=== PATIENT | female | born 1985 | race American Indian/Alaskan Native ===

== ENCOUNTER 2021-07-01 16:01 | Emergency (ER) | payer SELFPAY ==
[2021-07-01] MEDS ORDERED: SODIUM CHLORIDE 0.9% 1000 ML 1,000 ML IV ONE (17:08)
--- NOTE | 2021-07-01 17:13 | Emergency Department Report ---
ED General Adult HPI - General Chief complaint: Back Pain/Injury Stated complaint: BACK PAIN Time Seen by Provider: 07/01/21 17:02 Source: patient Mode of arrival: Ambulatory Limitations: No Limitations - History of Present Illness Initial comments: 35-year-old female patient with history of endometriosis presents to the emergency department with complaints of right-sided back pain and right upper quadrant abdominal pain starting today. Patient also endorses multiple episodes of nausea and vomiting. No preceding fall, trauma, or injury. No known sick contacts. Prior surgical history includes operation for endometriosis. Last menstrual cycle early June. No medications prior to arrival. Denies fever, diarrhea, constipation, vaginal bleeding, vaginal discharge, hematuria. Denies all other complaints at this time. - Related Data Previous Rx's Medication Instructions Recorded Last Taken Type Dicyclomine [Bentyl] 20 mg PO QID #20 tablet 07/01/21 Unknown Rx Ondansetron [Zofran Odt] 4 mg PO Q6H #20 tab.rapdis 07/01/21 Unknown Rx Allergies Allergy/AdvReac Type Severity Reaction Status Date / Time No Known Allergies Allergy Verified 07/01/21 16:10 ED Review of Systems ROS: Stated complaint: BACK PAIN Other details as noted in HPI Other: GENERAL: Negative for fever, chills, weight change, anorexia, fatigue. ENT: Negative for ear pain, difficulty hearing, sore throat, nasal congestion, epistaxis. CARDIOVASCULAR: Negative for chest pain, palpitations, lower extremity swelling. PULMONARY: Negative for cough, dyspnea, wheezing, orthopnea, cyanosis. GASTROINTESTINAL: Positive for abdominal pain, nausea, vomiting. MUSCULOSKELETAL: Positive for back pain. NEUROLOGICAL: Negative for headache, seizure, syncope, paresthesias, weakness. INTEGUMENTARY: Negative for erythema, rash, diaphoresis, laceration, ecchymosis. HEMATOLOGICAL: Negative for hemoptysis, hematemesis, hematochezia, hematuria. PSYCHIATRIC: Negative for hallucinations, suicidal ideation, homicidal ideation, anxiety, depression. ED Past Medical Hx - Medications Home Medications: Home Medications Medication Instructions Recorded Confirmed Last Taken Type Dicyclomine [Bentyl] 20 mg PO QID #20 tablet 07/01/21 Unknown Rx Ondansetron [Zofran Odt] 4 mg PO Q6H #20 tab.rapdis 07/01/21 Unknown Rx ED Physical Exam - General Limitations: No Limitations - Other Other exam information: General: Awake and alert. Tearful, uncomfortable, struggling to sit still. Head: Atraumatic, normocephalic. Eyes: EOMI. Pupils are equal and round. Normal sclera and conjunctiva. ENT: Oral mucosa is moist. Normal pharyngeal exam. Neck: Supple. No lymphadenopathy. Pulmonary: No respiratory distress. Clear to auscultation bilaterally. Cardiac: Regular rate and rhythm. Pulses are palpable and equal bilaterally. No lower extremity cyanosis or edema. Skin: Warm and dry. No rashes. Abdomen: Soft, non-protuberant. Right upper quadrant tenderness without guarding, rigidity, or rebound. Bowel sounds are normal. No organomegaly or masses noted. Back: Normal alignment. Right CVA tenderness. Extremities: Symmetrical. Full range of motion intact. Neurological: Alert and oriented, appropriately interactive, no focal deficits. Psych: Cooperative. Appropriate mood and affect. Speech is evenly metered. Thoughts are logically construed. ED Course Vital Signs 07/01/21 16:09 Temperature 98.5 F Pulse Rate 83 Respiratory 18 Rate Blood Pressure 103/57 [Left] O2 Sat by Pulse 100 Oximetry ED Medical Decision Making - Lab Data Result diagrams: 07/01/21 17:55 07/01/21 17:55 - Medical Decision Making Differential diagnosis including but not limited to: hepatobiliary disease, pancreatitis, pyelonephritis, nephrolithiasis, ectopic , urinary tract infection, dehydration, electrolyte abnormality On reevaluation, patient remains stable. No further vomiting in the emergency department. Labs are unremarkable. test is negative. Ultrasound obtained due to right upper quadrant tenderness within normal limits. CT of the abdomen/pelvis obtained due to right flank pain/CVA tenderness without acute process. Etiology of patient's pain is unclear; high clinical suspicion for viral illness. No clinical indication for further diagnostic work-up on an emergent basis at this time. Patient we discharged home with appropriate symptomatic treatment and referred to primary care provider for close outpatient follow-up. Patient expressed understanding and is agreeable to plan of care. Disease transmission precautions discussed. Strict return precautions provided. Repeat exam is unremarkable and benign. History, exam, diagnostic testing, and current condition do not suggest worrisome pathology to warrant further testing, continued ED treatment, admission, or surgical evaluation at this point. Given the low probability of a significant medical illness, it would be more likely to result in harm than benefit to perform further testing at this stage. Discussed findings, presumptive diagnosis, need for follow-up and specific signs/symptoms that should prompt immediate return to the emergency department. Instructions were explained in detail to the patient in addition to giving written discharge information. Patient expressed understanding and was given the opportunity to ask questions, all of which were satisfactorily answered prior to discharge home. Critical care attestation.: If time is entered above; I have spent that time in minutes in the direct care of this critically ill patient, excluding procedure time. ED Disposition Clinical Impression: Nonspecific abdominal pain Disposition: HOME / SELF CARE / HOMELESS Is pt being admited?: No Does the pt Need Aspirin: No Condition: Stable Instructions: Abdominal Pain, Adult, [place] Additional Instructions: Take Bentyl as directed for intestinal discomfort. Take Zofran as directed for nausea/vomiting. Rest. Drink plenty of fluids. Wash hands frequently to prevent disease transmission. Do not share food or drinks with others. Follow-up with primary care provider this week. Call tomorrow to schedule an appointment. See referral information below. Return to the emergency department immediately for new or worsening symptoms. Prescriptions: Dicyclomine [Bentyl] 20 mg PO QID #20 tablet Ondansetron [Zofran Odt] 4 mg PO Q6H #20 tab.rapdis Referrals: BREE BENITO MD [Staff Physician] - 3-5 Days [facility] [Provider Group] - 3-5 Days Time of Disposition: 22:50
[2021-07-01] MEDS ORDERED: ONDANSETRON 4 MG/2 ML INJ IV ONE (18:24)
[2021-07-01] MEDS ORDERED: MORPHINE 4 MG/1 ML INJ IV ONE (18:24)
[2021-07-01 18:37] LABS: Basophils # (Auto) 0.1 K/mm3 (0.0-0.1); Basophils % (Auto) 0.8 % (0.0-1.8); Eosinophils % (Auto) 0.1 % (0.0-4.3); Hematocrit 41.9 % (30.3-42.9); Lymphocytes # (Auto) 1.2 K/mm3 (1.2-5.4); Lymphocytes % (Auto) 12.9 % (13.4-35.0); Mean Corpuscular HGB Conc 33 % (30-34); Mean Corpuscular Volume 96 fl (79-97); Monocytes # (Auto) 0.4 K/mm3 (0.0-0.8); Monocytes % (Auto) 4.7 % (0.0-7.3); Platelet Count 240 K/mm3 (140-440); Red Blood Count 4.37 M/mm3 (3.65-5.03); Red Cell Distribution Width 14.2 % (13.2-15.2)
[2021-07-01 19:00] LABS: Alanine Aminotransferase 14 units/L (7-56); Albumin 4.7 g/dL (3.9-5)
[2021-07-01 19:21] LABS: Blood Urea Nitrogen 7 mg/dL (7-17); Calcium 9.4 mg/dL (8.4-10.2); Hemolysis Index 9
[2021-07-01 19:28] LABS: BUN/Creatinine Ratio 12
--- NOTE | 2021-07-01 20:04 | Ultrasound Report ---
ULTRASOUND ABDOMEN, LIMITED (RIGHT UPPER QUADRANT) INDICATION: RUQ tenderness + vomiting. COMPARISON: None available. FINDINGS: Pancreas: Visualized portion shows no significant abnormality. Liver: Normal. Gallbladder: Normal. Bile ducts: Normal. Common Bile Duct measures 3 mm. Free fluid: None. Additional Findings: None. IMPRESSION: 1. No sonographic abnormality of the right upper quadrant. Signer Name: Ad Emmanuel MD Signed: 07/01/2021 7:59 PM Workstation Name: [id number]
[2021-07-01] MEDS ORDERED: KETOROLAC 30 MG/1 ML INJ IV ONE (20:55)
--- NOTE | 2021-07-01 22:01 | Cat Scan Report ---
CT abdomen pelvis w con INDICATION / CLINICAL INFORMATION: R.U.Q. and RIGHT sided back pain. Hx of Endometriosis. TECHNIQUE: Axial CT images were obtained through the abdomen and pelvis after 100 cc of Omnipaque [address] scans at this location are performed using CT dose reduction for ALARA by means of automated exposure control. COMPARISON: None available. FINDINGS: LOWER CHEST: No significant abnormality LIVER: No significant abnormality GALLBLADDER/BILIARY TREE: No significant abnormality PANCREAS: No significant abnormality SPLEEN: No significant abnormality ADRENALS: No significant abnormality KIDNEYS / URETER: No significant abnormality URINARY BLADDER: No significant abnormality REPRODUCTIVE ORGANS: Endometrial fluid/thickening is likely physiologic. There is no suspicious adnex al mass. STOMACH / BOWEL: No significant abnormality. The appendix is not discretely seen, though there are no secondary signs of appendicitis. LYMPH NODES: No significant adenopathy. VASCULATURE: No significant abnormality. OTHER: No free air, free fluid, or focal fluid collection is identified. SKELETAL SYSTEM: No acute osseous findings. IMPRESSION: 1. No acute abnormality of the abdomen or pelvis. Signer Name: Nico Pena MD Signed: 07/01/2021 9:57 PM Workstation Name: [id number]
[2021-07-01 22:19] LABS: Bilirubin,Urine NEG (Negative); Blood,Urine NEG (Negative); Color,Urine Yellow (Yellow); Mucus,Urine 2+ /HPF; Urobilinogen,Urine < 2.0 mg/dL (<2.0)
[2021-07-01 23:13] VITALS: BP 99/62
== END 2021-07-01 23:15 | disposition home or self-care (01) ==
LOC: ED 16:01
DX: R10.11 Right upper quadrant pain (principal)
CPT/HCPCS: 36415; 74177; 76705; 80053; 81001; 83690; 83735; 84703; 85025; 96361; 96374; 96375; 99284; J1885; J2270; J2405; J7030; Q9967